=== PATIENT | female | born 2000 | race African-American/Black ===

== ENCOUNTER 2020-06-09 05:42 | Emergency (ER) | payer OTHER ==
[2020-06-09] MEDS ORDERED: predniSONE 20 MG TAB ONE (06:14)
[2020-06-09] MEDS ORDERED: Oxymetazoline HCl 0.05% (30 ML BOT) ONE (07:13)
== END 2020-06-09 08:18 | disposition home or self-care (01) ==
LOC: ERS 05:42
DX: J45.901 Unspecified asthma with (acute) exacerbation (principal)
CPT/HCPCS: 71046; J7512; J7620